=== PATIENT | female | born 2000 | race Caucasian/White ===

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

== ENCOUNTER → 2021-08-26 | Outpatient (CLI) | payer MEDICAID, SELFPAY ==
--- NOTE | 2021-08-26 12:31 | US_ITS ---
STUDY: FIRST TRIMESTER OBSTETRICAL ULTRASOUND REASON FOR EXAM: Female, 21 years old viability LMP: 06/17/2021. TECHNIQUE: Transvaginal TECHNICAL QUALITY: Adequate. PRIOR ULTRASOUND: None. FINDINGS: There is visualization of a single gestational sac in a normal intrauterine position. The mean sac diameter (MSD) measures 4.77 cm, indicating an estimated gestational age (EGA) of 10 weeks, 2 days. The gestational sac shape is within normal limits. There is a visualized yolk sac. The yolk sac measures 5.5 mm. The placenta is non-visualized. There is visualization of a live embryo. The crown-rump length (CRL) measures 2.98 cm, indicating an estimated gestational age (EGA) of 9 weeks, 3 days. There is demonstrated cardiac activity with a heart rate of 161 bpm. The estimated gestation age (EGA) by LMP is 10 weeks, 0 days. The estimated date of delivery (DARCI) by LMP is 03/24/2022. The estimated gestation age (EGA) by US is 9 weeks, 6 days. The estimated date of delivery (DARCI) by US is 03/25/2022. The uterus measures 11.8 cm x 9.6 cm x 8 cm. There is no demonstrated uterine fibroid. The cervix is closed. The right ovary measures 3.2 cm x 2.3 cm x 1.9 cm. There is no right ovarian cyst. There is no visualized right adnexal mass or complex lesion. The left ovary measures 2.7 cm x 1.8 cm x 1.5 cm. There is no left ovarian cyst. There is no visualized left adnexal mass or complex lesion. There is no fluid in the cul de sac. US/Transvaginal w/Preg US IMPRESSION: Single live uterine gestation with mean gestational age of 9 weeks and 6 days. Electronically Signed: Darell Ledezma MD at 13:28 EDT ,
== END | disposition home or self-care (01) ==
PROVIDERS: PCP Nurse Practitioner Family; Visit Provider Obstetrics & Gynecology
DX: O36.80X0 Pregnancy with inconclusive fetal viability, not applicable or unspecified (principal)
CPT/HCPCS: 76817

== ENCOUNTER → 2021-09-02 | Outpatient (CLI) | payer MEDICAID, SELFPAY ==
[2021-09-02 17:39] LABS: Amphetamine Urine VISTA NEGATIVE (<1000 ng/mL); Barbiturate Urine VISTA NEGATIVE (< 200 ng/mL); Benzodiazepine Urine VISTA NEGATIVE (< 200 ng/mL); Cocaine Urine VISTA NEGATIVE (< 300 ng/mL); Ecstacy Urine VISTA NEGATIVE (< 500 ng/mL); Methadone Urine VISTA NEGATIVE (< 300 ng/mL); PCP Urine VISTA NEGATIVE (< 25 ng/mL); THC Urine VISTA POSITIVE (< 50 ng/mL); Vista UDS pH Range 5
[2021-09-05 08:10] LABS: Chlamydia By Nucleic Acid AMP Negative (Negative)
[2021-09-05 19:05] LABS: Gonococcus By Nucleic Acid AMP Negative (Negative)
== END | disposition home or self-care (01) ==
LOC: LABSPEC 16:34
PROVIDERS: PCP Nurse Practitioner Family; Visit Provider Obstetrics & Gynecology
DX: Z34.90 Encounter for supervision of normal pregnancy, unspecified, unspecified trimester (principal)
CPT/HCPCS: 80307; 87086; 87088; 87491; 87591

== ENCOUNTER → 2021-09-08 | Outpatient (CLI) | payer MEDICAID, SELFPAY ==
[2021-09-08 11:44] LABS: Absolute Lymphocyte Count 1.75 X10^3/uL (0.83-4.51); Absolute Neutrophil Count 5.3 X10^3/uL (2.0-7.7); Basophil# 0.01 X10^3/uL; Basophil% 0.1 % (0-1); Eosinophil# 0.01 X10^3/uL; Eosinophils% 0.1 % (0-5); Hematocrit 35.2 % (37-47); Hemoglobin 11.9 g/dL (12.0-15.0); Lymphocyte # 1.75 X10^3/ul (0.83-4.51); Lymphocyte % 23.1 % (19-41); Mean Corp Hgb Conc 33.8 g/dL (32-36); Mean Corpuscular Volume 85.9 fL (81-99); Mean Platelet Vol. 9.6 fl (6.2-12.0); Monocyte# 0.45 X10^3/uL; NRBC Flagged by Analyzer 0 % (0-5); Neutrophil # 5.29 X10^3/uL (2.7-7.7); Platelet Count 262 K/mm3 (150-450); RBC Distribution Width SD 37.5 fl (35.1-43.9); White Blood Count 7.6 K/mm3 (4.4-11.0)
[2021-09-08 12:39] LABS: NATERA MAILED SPECIMEN
[2021-09-08 13:07] LABS: HIV - WCH Non-Reactive (Nonreactive); Hepatitis B Surface Antigen Non-Reactive (Nonreactive); Hepatitis C Antibody Non-Reactive (Nonreactive); Rubella IgG Reactive (Nonreactive); Syphilis Antibodies Non-reactive
== END | disposition home or self-care (01) ==
LOC: PAVLAB 11:16
PROVIDERS: PCP Nurse Practitioner Family; Referring Provider Obstetrics & Gynecology; Visit Provider Obstetrics & Gynecology
DX: Z34.90 Encounter for supervision of normal pregnancy, unspecified, unspecified trimester (principal)
CPT/HCPCS: 36415; 85025; 86703; 86762; 86780; 86803; 86850; 86900; 86901; 87340

== ENCOUNTER 2022-03-03 14:15 | Inpatient (IN) | payer MEDICAID, SELFPAY ==
[2022-03-03] VITALS (15 sets, daily range): BP systolic 89–125; BP diastolic 45–77; PULSE 50–84; RESP 14–20; TEMP 36–36.9; O2SAT 98–100; BMI 30.6
[2022-03-03] MEDS: Acetaminophen 500 MG Tablet 1000 MG PO ×2 (14:59→21:25)
[2022-03-03] MEDS: Lactated Ringers 1,000 ML 999 ML IV (15:45)
[2022-03-03 16:09] LABS: Absolute Lymphocyte Count 1.94 X10^3/uL (0.83-4.51); Basophil# 0.02 X10^3/uL; Basophil% 0.1 % (0-1); Eosinophil# 0.01 X10^3/uL; Eosinophils% 0.1 % (0-5); Hematocrit 40.7 % (37-47); Hemoglobin 13.4 g/dL (12.0-15.0); Lymphocyte # 1.94 X10^3/ul (0.83-4.51); Lymphocyte % 14.1 % (19-41); Mean Corp Hgb Conc 32.9 g/dL (32-36); Mean Corpuscular Hgb 27.9 pg (27.0-32.0); Mean Corpuscular Volume 84.8 fL (81-99); Mean Platelet Vol. 10.5 fl (6.2-12.0); Monocyte% 5.1 % (0-10); NRBC Flagged by Analyzer 0 % (0-5); Neutrophil # 10.99 X10^3/uL (2.7-7.7); Neutrophil % 80.2 % (47-70); Platelet Count 271 K/mm3 (150-450); RBC Distribution Width CV 12.1 % (11.6-14.6); RBC Distribution Width SD 36.8 fl (35.1-43.9); White Blood Count 13.7 K/mm3 (4.4-11.0)
[2022-03-03] MEDS: Sodium Citrate/Citric Acid 30 ML UDC PO (16:34)
[2022-03-03] MEDS: Lactated Ringers 1,000 ML 150 ML IV (16:35)
--- NOTE | 2022-03-03 16:47 | HP.PCM.OB_ITS ---
HPI - General General Date of Admission: 03/03/22 HPI Narrative LIZANDRO FLORES, is a 21 y/o @ 37 weeks 0 days who was admitted to L&D today after being seen in office and found to be 4 cm dilated, low fundal height and mariella of 2. Her placenta appeared calcified and she also has complaints of itching of hands and feet. She has a h/o prior section and desires repeat. She was away from our office since the end of October and states that she was seen by an OB in [place]. She denies lof, vaginal bleeding, or dec fm. Maternal Data Information DARCI Calculator Estimated Delivery Date Method Current WG Current Estimate 03/24/22 LMP (Certain) 37w 0d Other Estimates 03/20/22 Ultrasound #1 37w 4d PFSH PFSH Medical History Asthma Home Medications albuterol sulfate 90 mcg/actuation aerosol inhaler 2 puff inhalation Q6H PRN shortness of breath or wheezing #8.5 grams 09/02/21 [Rx Last Taken Unknown] prenat.vits,nancy,cof-naes-fihfe 1 tab PO DAILY 03/03/22 [History Last Taken 03/02/22 12:00] Allergy/AdvReac Type Severity Reaction Status Date / Time No Known Allergies Allergy Verified 03/03/22 13:15 Family History Mother Diabetes Surgical History History of wisdom tooth extraction, class IV edentulism Social History household members: family housing: house current occupational status: unemployed pets and animals: Yes Smoking Status: Current some day smoker second hand exposure: No alcohol intake: never substance use type: does not use seatbelt use: always do you feel safe at home: Yes additional social history: BF- Tristian Ballard ([employer] K) History 2 Elective abortions Hx Para 1 Spontaneous abortions Hx # Term Pregnancies Ectopic pregnancies Hx # Pregnancies Multiple births # of living children 1 Past Pregnancies Del. Date Name GA/Weeks Outcome Route Bth Weight Gen Labor Lgth Anesthesia Del Locatn Provider FOB 12/07/20 Blade 40 live - full term Male e pidural [facility] Z[facility] Delivery Date: 12/07/20 Last Updated by: Bronwyn Garcia elective induction for borderline MARIELLA. underwent c section for non reassuring status. Visit Details Expected Delivery Route/Plan patient counseled regarding risks/benefits of trial of labor versus repeat . ACOG/uptodate education given to patient. 29.8% % likelihood of success per calculator Discussed that she is less than 1 year from last , unless spontaneous labor happens on it's own, that repeat section is recommended. Plans Covid status: [] Flu vaccine: [] Tdap vaccine: [] Rhogam: [] LARC form signed: [] Problem list reviewed and updated with the most current plan of care details and appropriate orders placed. Relevant counseling for the gestational age provided. Continue routine care and follow up unless otherwise noted in visit notes/problem list details OB Flowsheet Initial Weight: Not Recorded Date -?-?-?-?-?-?-?-?-?-?-?-?- EGA Weight BP Urine Prot -?-?-?-?-?-?-?-?-?-?-?-?- Glucose FHR FuHt Pres Dilation -?-?-?-?-?-?-?-?-?-?-?-?- Effaced St Visit Note 09/02/21 -?-?-?-?-?-?-?-?-?-?-?-?- 11w 0d 155 lb 8 oz 110/72 -?-?-?-?-?-?-?-?-?-?-?-?- 157 -?-?-?-?-?-?-?-?-?-?-?-?- JV- CRL consiste nt with LMP. pt was an emergency section 9 months ag o. She wants to , chance of success only 29%. risks of rupture discussed. see above recommendations. 09/29/21 -?-?-?-?-?-?-?-?-?-?-?-?- 14w 6d 159 lb 118/60 Negative -?-?-?-?-?-?-?-?-?-?-?-?- Negative 154 -?-?-?-?-?-?-?-?-?-?-?-?- MH-No bleeding o r cramping. Denies concerns. Nausea resolved. 11/06/21 -?-?-?-?-?-?-?-?-?-?-?-?- 20w 2d 161 lb 2 oz 118/80 Nega tive -?-?-?-?-?-?-?-?-?-?-?-?- Negative 125 -?-?-?-?-?-?-?-?-?-?-?-?- JV- no lof, vagi nal bleeding, or cramping. had formal scan yesterday and results are pending 03/03/22 -?-?-?-?-?-?-?-?-?-?-?-?- 37w 0d 184 lb 4 oz 121/78 Nega tive -?-?-?-?-?-?-?-?-?-?-?-?- Negative 135 33 Cephalic 4 -?-?-?-?-?-?-?-?-?-?-?-?- 70 -1 JV- pt is having pain over her incision and states that her insides hurt like the day she had her last baby she has been seen in [place] with an OB there while she was visiting family since November. She complains of all over body itching including palms of hands. On exam MARIELLA is 2 and placenta appears to have grade 3 changes. her cx is 4 cm dilated. sending to L&D for delivery tonight via repeat section. ROS Constitutional Constitutional: Denies change in weight, fatigue, fever(s), headache(s), poor appetite or weakness Eyes Eyes: Denies blurry vision, change in vision, seeing flashes or spots in vision ENT HEENT: Denies dizziness, headache(s), loss taste/smell or sore throat Cardiovascular Cardiovascular: Denies chest pain, dizziness, dyspnea, irregular heart rhythm, leg edema, palpitations, rapid heart rate or vomiting Respiratory/Chest Respiratory/Chest: Denies chest tightness, cough, dyspnea or breast pain Gastrointestinal Gastrointestinal: Denies abdominal pain, anorexia, constipation, cramping, diarrhea, hemorrhoids, vomiting or weight changes Genitourinary Genitourinary: Denies dysuria, flank pain, genital lesions, genital pain, urinary frequency or urinary urgency Musculoskeletal Musculoskeletal: Denies back pain, difficulty walking, joint pain, limited range of motion, muscle cramps or numbness Integumentary Integumentary: Denies lesions or unusual bruising Neurologic Neurologic: Denies abnormal movements, abnormal speech, dizziness, numbness, seizure-like activity or syncope Psychiatric Psychiatric: Denies anxiety, behavioral changes, change in appetite, change in libido, cognitive impairment, confusion, depression, difficulty concentrating, hallucinations or suicidal thoughts Endocrine Endocrinology: Denies excessive sweating, polydipsia or polyuria Hematologic/Lymphatic Hematologic/Lymphatic: Denies easy bleeding, easy bruising or lymphadenopathy Allergic/Immunologic Allergic/Immunologic: Denies itchy eyes, lip swelling, seasonal rhinorrhea, rhinitis, throat swelling, tongue swelling, eczemia, wheezing or asthma Vital Signs Vital Signs Vital Signs: 03/03/22 14:35 03/03/22 14:35 03/03/22 14:35 Temperature Temperature Source Pulse Rate 84 Respiratory Rate Blood Pressure 113/63 Blood Pressure Mean BP Systolic 113 BP Diastolic 63 Blood Pressure Source Blood Pressure Position Blood Pressure Location Pulse Ox 98 Oxygen Delivery Method 03/03/22 16:10 03/03/22 16:10 03/03/22 15:43 Temperature 97.5 F L Temperature Source Temporal Pulse Rate 71 69 Respiratory Rate 18 Blood Pressure 125/77 H 125/77 H Blood Pressure Mean 93 BP Systolic 125 BP Diastolic 77 Blood Pressure Source Monitor Blood Pressure Position Semi-Fowlers Blood Pressure Location Right Arm Pulse Ox 100 Oxygen Delivery Method Room Air Weight Weight: 183 lb 13.848 oz Body Mass Index (BMI) 30.6 Physical Exam Const alert, oriented x3, no apparent distress and healthy appearing General Appearance: cooperative; Negative for anxious HEENT normocephalic Face and Sinus: normal facial exam Eyes EOMs intact bilaterally and no scleral icterus General Eye: normal appearance of both eyes Neck full ROM and supple Lymph Lymphatic: no lymphadenopathy noted Chest Chest: abnormal inspection of the chest Resp normal respiratory effort Effort and Inspection: able to speak in complete sentences Cardio regular rate GI soft to palpation and non-tender Inspection: gravid Palpation: soft; Negative for tender external exam normal Amniotic Fluid: ROM+plus Back/Spine no CVA tenderness Extremity normal to inspection, full ROM and no clubbing, cyanosis or edema General Extremity: Negative for calf tenderness or edema Skin Lesions: no lesions Rashes: no rashes Psych mental status grossly normal Labs Labs Labs: Blood Type AB POSITIVE Antibody Screen NEGATIVE Hct 40.7 % (37-47) Hgb 13.4 g/dL (12.0-15.0) Obstetrics US Syphilis Total Ab Non-reactive Rubella IgG Antibody Reactive (Nonreactive) Hep Bs Antigen Non-Reactive (Nonreactive) Chlamydia DNA (ZAFAR) Negative (Negative) Neisseria gonorrhoeae DNA (ZAFAR) Negative (Negative) HIV 1&2 Antibody Non-Reactive (Nonreactive) Glucose 1 Hr 50 gm 96 mg/dL (70-140) Miscellaneous Test Assessment & Plan (1) Oligohydramnios: (2) Marijuana abuse: COMMENT: +tox at NOB, random tox screens. (3) History of : COMMENT: chance of successful is 29%. recommend rpt section if no active labor (4) : QUALIFIERS: Weeks of gestation: 37 weeks Qualified Code(s): Z3A.37 - 37 weeks gestation of COMMENT: NIPT low risk, previous carrier testing negative. Anatomy US normal (5) Supervision of normal : COMMENT: [id number] Boy PC Blade PLAN: Plan 37 weeks - prior section suspect iugr and cholestasis of oligo confirmed today. will order torch titers and admit to L&D for delivery shashi
[2022-03-03 16:48] LABS: Amphetamine Urine VISTA NEGATIVE (<1000 ng/mL); Barbiturate Urine VISTA NEGATIVE (< 200 ng/mL); Benzodiazepine Urine VISTA NEGATIVE (< 200 ng/mL); Cocaine Urine VISTA NEGATIVE (< 300 ng/mL); Ecstacy Urine VISTA NEGATIVE (< 500 ng/mL); Methadone Urine VISTA NEGATIVE (< 300 ng/mL); PCP Urine VISTA NEGATIVE (< 25 ng/mL); THC Urine VISTA POSITIVE (< 50 ng/mL); Vista UDS pH Range 4
[2022-03-03] MEDS: Cefazolin 2 GM in 0.9% Normal Saline 100 ML IV (17:05)
[2022-03-03] MEDS: Oxytocin 15 Units/NS 250ml 15 UNITS/250 ML IV.SOLN 83 UNITS IV (18:10)
[2022-03-03] MEDS: Ketorolac 30 MG/ML Syringe IV (18:55)
--- NOTE | 2022-03-03 19:40 | OP.PCM_ITS ---
Assessment & Plan (1) Oligohydramnios: (2) Marijuana abuse: COMMENT: +tox at NOB, random tox screens. (3) History of : COMMENT: chance of successful is 29%. recommend rpt section if no active labor (4) : QUALIFIERS: Weeks of gestation: 37 weeks Qualified Code(s): Z3A.37 - 37 weeks gestation of COMMENT: NIPT low risk, previous carrier testing negative. Anatomy US normal (5) Supervision of normal : COMMENT: [id number] Boy PC Blade Maternal Data Information DARCI Calculator Estimated Delivery Date Method Current WG Current Estimate 03/24/22 LMP (Certain) 37w 0d Other Estimates 03/20/22 Ultrasound #1 37w 4d Final DARCI: 03/24/22 Final DARCI Source: LMP Gestational age: 37 Details Operative Information Date of Procedure: 03/03/22 Pre-Operative Diagnosis: @ 37 weeks, prior section, oligohydramnios, 4 cm dilated, suspect cholestasis of Post-Operative Diagnosis: @ 37 weeks, prior section, oligohydramnios, 4 cm dilated, suspect cholestasis of Classification: Scheduled Procedure Type: low transverse senior program analyst #1: Myriam Owen Type of Anesthesia: Spinal Antibiotic Given: Ancef 2 grams IV x1 Drain: Candelario to straight drain Estimated Blood Loss: 400cc Findings Description of Procedure: The patient is a 21 y/o @ 37 weeks presented for repeat . Spinal anesthesia was placed without difficulty. Candelario catheter was placed. The patient was placed in the dorsal supine position with leftward tilt. Patient was prepped and draped in the normal sterile fashion. Pfannenstiel skin incision was made with the scalpel and carried through to the underlying layer of fascia with the scalpel. Fascia was nicked in the midline and the incision extended laterally. The rectus bellies were dissected off superiorly and inferiorly with out complication both sharply and bluntly. The peritoneum was entered digitally. The incision was stretched and a low transverse uterine incision was made with the scalpel. The 's head was delivered atraumatically followed by the anterior and posterior shoulders without complication the rest of the delivered. The cord was clamped and cut and the was handed off to awaiting nurse. The placenta was delivered spontaneously immediately following and was noted to be intact and have a three- vessel cord. The uterus was exteriorized cleared of all clots and debris, and the incision was closed in a double layer closure using #1 vicryl and #1 Monocryl. The ovaries and fallopian tubes were noted to be within normal limits. The uterus was returned to the maternal abdomen and gutters were cleared of all clots and debris. The peritoneum was closed with 3-0 Monocryl in a running fashion. Fascia was closed with 0 PDS in a running fashion. Subcu taneous tissue was copiously irrigated and the skin was closed with 3-0 Monocryl in a subcuticular fashion. Mepilex dressing was applied without complication. Patient was taken to recovery in stable condition. It was discussed with the patient that based on the clinical information obtained during this encounter, combined with her history, at this time I would recommend for future deliveries if further pregnancies are desired. Presentation: Positive for Vertex Amniotic Fluid Description: Clear Placenta Disposition: [facility] Cord Vessel Description: 3 Vessels Cord Entanglement: None Infant A Gender: Male (1 minute): 8 (5 minute): 9 Delayed Cord Clamping: Yes Complications Risks of Surgery Discussed w/Patient: Bleeding, Anesthesia Risks, Infection, Need for Future C-Sections and Injury to surrounding structure(s) including bowel and bladder Multi Select Codes Urinary/Genital Urinary/Genital CPT Codes: 44403 delivery+ Care([facility])
--- NOTE | 2022-03-03 19:47 | PCM.DC ---
Discharge Instructions Diet Discharge Diet: No restrictions Activity Discharge Activity: May Not Drive (for 2 weeks or while taking narcotic pain medications.), May Shower and May Take a Tub Bath (in 7 days.) May resume sexual activity in: 4-6 weeks Weight Bearing Status: Full weight bearing Lifting Restrictions: 20 pounds Dressing / Incision Call your doctor if your incision/area has: Continuous Slow Oozing, Sudden Increased Bleeding, Increased Pain/ Swelling, Increased Redness and Foul Smelling Discharge Call your doctor if you observe: Fever of 101 or Higher and Using more than 1 pad per hour Suture Line Care: Avoid Pulling/Pushing and Avoid Pinching/Bending Cleanse incision/area with: Soap & Water and Keep Dressing Clean & Dry Follow Up Care Please Follow Up With: Vika Acuna DO When: Call [phone] to make an appointment for an incision check in 1-2 weeks. Test Results: Test results from this visit will be discussed in further detail at your follow-up appointment, if applicable. Discharge Plan Admission Admit Date/Time: 03/03/22 14:15 Primary Reason for Your Visit: repeat section Attending Provider: Vika Acuna Primary Care Provider: Bettie Godinez NP Discharge Orders/Prescriptions Prescriptions: New oxycodone-acetaminophen [Percocet] 5-325 mg tablet 1 tab PO Q4H PRN (Reason: pain) 7 Days Qty: 30 0RF naproxen 500 mg tablet,delayed release (DR/EC) 500 mg PO BID PRN (Reason: pain) Qty: 40 0RF Continued albuterol sulfate 90 mcg/actuation HFA aerosol inhaler 2 puff inhalation Q6H PRN (Reason: shortness of breath or wheezing) Qty: 8.5 12RF prenat.vits,nancy,jwj-axvc-pibjw Tablet 1 tab PO DAILY Referrals / Follow Up: Bettie Godinez NP, [employer] [Primary Care Provider] - Disposition Disposition (needs filled in before D/C Order can be placed): Home, Self Care
[2022-03-03] MEDS: Lactated Ringers 1,000 ML 100 ML IV (21:24)
[2022-03-04] VITALS (16 sets, daily range): BP systolic 84–117; BP diastolic 39–72; PULSE 54–367; RESP 15–18; TEMP 36.3–37.1; O2SAT 96–99
[2022-03-04] MEDS: Ketorolac 30 MG/ML Syringe IV ×3 (00:25→12:15)
[2022-03-04] MEDS: Acetaminophen 500 MG Tablet 1000 MG PO ×4 (03:17→21:30)
[2022-03-04 06:11] LABS: Hematocrit 32.5 % (37-47); Hemoglobin 10.5 g/dL (12.0-15.0); Mean Corp Hgb Conc 32.3 g/dL (32-36); Mean Corpuscular Hgb 27.7 pg (27.0-32.0); Mean Corpuscular Volume 85.8 fL (81-99); Mean Platelet Vol. 10.8 fl (6.2-12.0); Platelet Count 188 K/mm3 (150-450); RBC Distribution Width CV 12.1 % (11.6-14.6); Red Blood Count 3.79 M/mm3 (4.2-5.4); White Blood Count 10.5 K/mm3 (4.4-11.0)
--- NOTE | 2022-03-04 08:13 | PCM.PN.OB ---
Subjective Subjective Patient doing well without complaints. Tolerating PO. Ambulating and voiding without difficulty. Feeding well. Denies chest pain, shortness of breath, calf pain/swelling, fevers, chills, lightheadedness. Objective Data Objective Data Vital Signs: Vital Signs Temp Pulse Resp BP Pulse Ox O2 Del Method 97.4 F L 54 L 16 93/39 L 98 Room Air 03/04/22 03:31 03/04/22 07:30 03/04/22 07:30 03/04/22 03:31 03/04/22 07:30 03/04/22 07:30 Oxygen Delivery Method Room Air Weight: 183 lb 13.848 oz Body Mass Index (BMI) 30.6 Intake & Output: Intake and Output for Last 24 Hours 03/02/22 03/03/22 03/04/22 23:59 23:59 23:59 Intake Total 2009 946.67 / 946.67 Output Total 150 / 150 550 / 550 Balance 1860 / 1860 396.67 / 396.67 Lab / Micro Data Attestation: I reviewed the patient's lab results. Result Diagrams: 03/04/22 05:20 Labs: Laboratory Results - last 24 hr 03/03/22 15:50: WBC 13.7 H, RBC 4.80, Hgb 13.4, Hct 40.7, MCV 84.8, MCH 27.9, MCHC 32.9, RDW Std Deviation 36.8, RDW Coeff of Vazquez 12.1, Plt Count 271, MPV 10.5, Immature Gran % (Auto) 0.400, Neut % (Auto) 80.2 H, Lymph % (Auto) 14.1 L, [place] % (Auto) 5.1, Eos % (Auto) 0.1, Baso % (Auto) 0.1, Absolute Neuts (auto) 11.0 H, Absolute Lymphs (auto) 1.94, Nucleated RBC % 0 03/03/22 15:50: Blood Type AB POSITIVE, Antibody Screen NEGATIVE 03/03/22 15:50: Urine Opiates Screen NEGATIVE, Urine Methadone Screen NEGATIVE, Ur Barbiturates Screen NEGATIVE, Ur Phencyclidine Scrn NEGATIVE, Ur Amphetamines Screen NEGATIVE, MDMA (Ecstasy) Screen NEGATIVE, U Benzodiazepines Scrn NEGATIVE, Urine Cocaine Screen NEGATIVE, U Cannabinoids Screen POSITIVE H, Ur Drug Screen Comment 03/04/22 05:20: WBC 10.5, RBC 3.79 L, Hgb 10.5 L, Hct 32.5 L, MCV 85.8, MCH 27.7, MCHC 32.3, RDW Std Deviation 38.0, RDW Coeff of Vazquez 12.1, Plt Count 188, MPV 10.8 ROS ROS Narrative see HPI Physical Exam Narrative pt in NAD, easy WOB, cardiac exam normal. abdomen soft, nt/nd. fundus firm at u. lochia rubra mild, small clots. LE without edema. +pp. Const alert, oriented x3, no apparent distress and well nourished Assessment & Plan (1) Status post section: COMMENT: bb boy - JV (2) Marijuana abuse: COMMENT: +tox at NOB, random tox screens. (3) History of : COMMENT: chance of successful is 29%. recommend rpt section if no active labor PLAN: Plan s/p LTCS PPD #1 1. routine post care 2. breast feeding- support given 3. rh positive 4. rubella immune
[2022-03-04] MEDS: Senna/Docusate Sodium 1 Tablet PO (11:09)
[2022-03-04] MEDS: Prenatal Vits Tablet 1 TABLET PO (12:15)
[2022-03-04] MEDS: Ibuprofen 600 MG Tablet PO (18:56)
--- NOTE | 2022-03-04 21:37 | NURSING ---
T 2120 when this RN entered room, RACHELE stated her chest hurt all over. This RN listened to MOB and lungs were bilaterally clear and heart was regular. Pulse ox was 97%. This RN explained to pt that she should get up and ambulate out of bed and sit up in chair as it could be gas pains and moving with help. Will re-evaluate pt after she does so and if no changes will call physician. Charge nurse Rossy notified
--- NOTE | 2022-03-04 22:26 | NURSING ---
pt stated at 2224 that chest pain has subsided and does not hurt anymore, there is some pain in her right shoulder but not severe. Educated pt on gas pains and will continue to follow up with pain.
[2022-03-05] MEDS: Ibuprofen 600 MG Tablet PO ×3 (01:18→14:29)
[2022-03-05 01:20] VITALS: BP 106/48; PULSE 64; RESP 16; TEMP 36.8; O2SAT 97
[2022-03-05] MEDS: Acetaminophen 500 MG Tablet 1000 MG PO ×2 (03:40→09:41)
[2022-03-05] MEDS: 0.9% Saline Lock 10 ML Syringe IV (03:41)
--- NOTE | 2022-03-05 07:50 | PCM.PN.OB ---
Subjective Subjective Patient doing well without complaints. Tolerating PO. Ambulating and voiding without difficulty. Feeding well. Denies chest pain, shortness of breath, calf pain/swelling, fevers, chills, lightheadedness. Objective Data Objective Data Vital Signs: Vital Signs Temp Pulse Resp BP Pulse Ox O2 Del Method 98.3 F 64 16 106/48 L 97 Room Air 03/05/22 01:20 03/05/22 01:20 03/05/22 01:20 03/05/22 01:20 03/05/22 01:20 03/05/22 01:20 Oxygen Delivery Method Room Air Weight: 183 lb 13.848 oz Body Mass Index (BMI) 30.6 Intake & Output: Intake and Output for Last 24 Hours 03/03/22 03/04/22 03/05/22 23:59 23:59 23:59 Intake Total 2009 946.67 / 946.67 Output Total 150 / 150 1200 / 1200 Balance 1860 / 1860 -253.33 / -253.33 Lab / Micro Data Result Diagrams: 03/04/22 05:20 Physical Exam Const alert and oriented x3 HEENT normocephalic Eyes PERRL Neck full ROM Resp normal respiratory effort GI soft to palpation GI Narrative: FF below U. Dressing dry and intact Palpation: tender other (appropriately) Assessment & Plan (1) Status post section: COMMENT: coleen Yung PLAN: Plan s/p LTCS PPD # 2 1. routine post care 2. breast feeding- support given 3. rh positive 4. rubella immune 5. plans home today
[2022-03-05] MEDS: oxyCODONE 5 MG Tablet PO (09:40)
[2022-03-05] MEDS: Senna/Docusate Sodium 1 Tablet PO (09:41)
[2022-03-05 09:59] VITALS: BP 108/52; PULSE 64; RESP 16; TEMP 37.2; O2SAT 98
[2022-03-05] MEDS: Prenatal Vits Tablet 1 TABLET PO (14:29)
[2022-03-05] MEDS: MedroxyPROGESTERone 150 MG/ML Syringe IM (14:29)
[2022-03-05 15:00] VITALS: BP 119/63; PULSE 67; RESP 16; TEMP 36.7
[2022-03-05 16:24] LABS: Toxoplasma Gondii IgM < 3.0 AU/mL (0.0-7.9)
[2022-03-05 16:33] LABS: CMV Acute Antibody IgM < 30.0 AU/mL (0.0-29.9); CMV Antibody IgG < 0.60 U/mL (0.00-0.59); HSV 1 IgG < 0.91 index (0.00-0.90); HSV 2 IgG < 0.91 index (0.00-0.90); Toxoplasma Gondii IgG < 3.0 IU/mL (0.0-7.1)
== END 2022-03-05 16:00 | disposition home or self-care (01) | DRG 540 ==
PROVIDERS: Admitting Provider Obstetrics & Gynecology; PCP Nurse Practitioner Family; Visit Provider Obstetrics & Gynecology
DX: O41.03X0 Oligohydramnios, third trimester, not applicable or unspecified (principal); O99.324 Drug use complicating childbirth; F12.10 Cannabis abuse, uncomplicated; F17.200 Nicotine dependence, unspecified, uncomplicated; J45.909 Unspecified asthma, uncomplicated; O99.52 Diseases of the respiratory system complicating childbirth; O34.219 Maternal care for unspecified type scar from previous cesarean delivery; O99.334 Smoking (tobacco) complicating childbirth; Z3A.37 37 weeks gestation of pregnancy; Z37.0 Single live birth
CPT/HCPCS: 59025; 59050; 80307; 85025; 85027; 86644; 86645; 86695; 86696; 86777; 86778; 86850; 86900; 86901; 99218; J7120; A4216; G0378; J2405

== ENCOUNTER 2022-03-07 15:51 | Emergency (ER) | payer MEDICAID, SELFPAY ==
[2022-03-07 15:55] VITALS: BP 95/78; PULSE 66; RESP 18; TEMP 36.5; O2SAT 98; BMI 28.9
--- NOTE | 2022-03-07 16:28 | CT_ITS ---
INDICATION: headache, recent delivery EXAMINATION: CT BRAIN - CT Head or Brain W/O Contrast Injection TECHNIQUE: Multiple axial images were obtained of the head without intravenous contrast. A radiation dose optimization technique was used for this scan. IV Contrast dosage and agent: None. RADIATION DOSAGE (If Supplied By Facility): CTDIvol = ( 44.99 ) mGy, DLP = ( 796.11 ) mGycm COMPARISON: No relevant prior examinations for comparison FINDINGS: HEMISPHERES: 1. The cerebral parenchyma, ventricular system, subarachnoid spaces have normal configuration and density. There is a normal gyral pattern. There is normal vargas/white differentiation. No midline shift.. 2. The hemispheric white matter has normal appearance. 3. No intraparenchymal mass, hemorrhage, or acute territorial infarct. CEREBELLUM - BRAINSTEM: The cerebellum, brainstem, basilar and suprasellar cisterns have normal appearance. No Chiari malformation. PITUITARY: Infundibulum and pituitary have normal configuration. Midline structures appear normal. CSF SPACES: Appropriate for age. No hydrocephalus. Basal cisterns are patent. VESSELS: 1. No significant vascular calcifications in the cavernous carotid vessels. 2. No hyperdense vascular signs noted.. ORBITS AND PARANASAL SINUSES: 1. Normal appearance of the bony orbits. Normal appearance of the globes and retrobulbar soft tissues.. 2. Paranasal sinuses are clear. BONY ELEMENTS: Bony elements of the cranial vault, facial skeleton and skull base have normal appearance. SCALP AND SOFT TISSUES: Normal appearance of the soft tissues of the scalp and the visualized face OTHER: None ASPECTS Score for Acute Strokes: 10 CT/Brain/Head without Contrast IMPRESSION: 1. Normal CT examination of the brain 2. No intracranial mass, hemorrhage or acute territorial infarct. 3. No radiographically significant sinus disease.. Electronically Signed: Ankit Gurrola MD at 17:48 EST ,
--- NOTE | 2022-03-07 16:36 | EX.ED.VIS.HA ---
HPI History of Present Illness Chief Complaint: Headache Informant: patient Onset/Context/Timing Onset: Days (3-4) Context: Gradual Timing: Continuous Location: Bifrontal and behind right eye Current Severity: Moderate Maximum Severity: Moderate Worsened by: Light at times Relieved by: Nothing she has tried including naproxen Associated Symptoms/Injury Associated Symptoms: Positive for Nausea, Vomiting (x1), Blurred Vision (Intermittently) and Photophobia; Negative for Fever, Sore Throat, Sinus Pressure, Numbness, Tingling or Visual Loss Injury - FRANK: Negative for Direct Trauma Narrative Narrative: 21-year-old healthy female had a delivery without any known third trimester complications 4 days ago. On her way home from the hospital started having headache, was gradual and progressively worsening. She uses the word migraine but states she has never had a migraine before. It is bifrontal, right retro-orbital, there is no thunderclap in onset was gradual, associated with some blurred vision at times, seeing spots at times that are not focal in her field of vision, nausea, vomited once. No focal neurologic symptoms. No fevers or chills. No neck stiffness. No confusion. She has not had any blood pressure issues during her that she knows of. [facility] Medical History Asthma Home Medications albuterol sulfate 90 mcg/actuation aerosol inhaler 2 puff inhalation Q6H PRN shortness of breath or wheezing #8.5 grams 09/02/21 [Rx Last Taken Unknown] naproxen 500 mg tablet,delayed release 500 mg PO BID PRN pain #40 tabs 03/03/22 [Rx Last Taken Unknown] oxycodone-acetaminophen 5 mg-325 mg tablet (Percocet) 1 tab PO Q4H PRN pain 7 days #30 tabs 03/03/22 [Rx Last Taken Unknown] prenat.vits,nancy,[id number] 1 tab PO DAILY 03/03/22 [History Last Taken 03/02/22 12:00] oxycodone-acetaminophen 5 mg-325 mg tablet (Percocet) 1 tab PO Q4H PRN pain 7 days #30 tabs 03/05/22 [Rx Last Taken Unknown] Allergy/AdvReac Type Severity Reaction Status Date / Time No Known Allergies Allergy Verified 03/07/22 15:57 Family History Mother Diabetes Surgical History (Updated 03/07/22 @ 16:23 by Nuno Pedraza) History of wisdom tooth extraction, class IV edentulism Previous section Social History household members: family housing: house current occupational status: unemployed pets and animals: Yes Smoking Status: Current some day smoker tobacco type: cigarettes second hand exposure: No alcohol intake: never substance use type: does not use seatbelt use: always do you feel safe at home: Yes additional social history: [place]- [employer] ([place]) ROS ROS ED Constitutional Constitutional ED: Denies chills or fever(s) Eyes Eyes: Reports blurry vision; Denies diplopia ENT ENT ED: Denies ear pain or sore throat Cardiovascular Cardiovascular: Denies chest pain or palpitations Respiratory/Chest Respiratory/Chest: Denies cough or dyspnea Gastrointestinal Gastrointestinal: Reports nausea and vomiting; Denies abdominal pain or diarrhea Genitourinary Genitourinary ED: Denies dysuria or urinary frequency Musculoskeletal Musculoskeletal: Denies back pain or myalgias Integumentary Denies abscess or rash Neurologic Neurologic: Reports headache(s); Denies paresthesias or weakness EXAM Physical Exam Const Vital Signs: 03/07/22 15:55 03/07/22 18:00 Temperature 97.7 F L Temperature Source Temporal Pulse Rate 66 78 Respiratory Rate 18 16 Blood Pressure 95/78 115/78 Blood Pressure Mean 83 90 Pulse Ox 98 99 Oxygen Delivery Method Room Air Room Air Positive well nourished and well developed Constitutional Narrative: Well-appearing, conversive in full sentences, no distress General Appearance ED: well developed and NAD HEENT Reports normocephalic, TM's clear and moist mucous membranes atraumatic Face and Sinus: Negative for sinus tenderness Tympanic Membrane ED: Yes TM's clear Mouth ED: Yes oral and palatal mucosa normal Mouth: oral and palatal mucosa normal Throat: posterior oropharynx normal Eyes PERRL, EOMs intact bilaterally and conjunctivae normal Eyes Narrative: photophobia Neck no lymphadenopathy, supple and no meningeal signs General: Negative for tenderness Resp normal respiratory effort and clear to auscultation bilaterally Cardio regular rate and regular rhythm Rate: Negative for tachycardic GI non-tender and non-distended Palpation: soft Back/Spine no CVA tenderness Back/Spine Narrative: FROM Extremity normal to inspection and full ROM Neuro oriented x3, CN's II-XII intact bilaterally and no sensory deficits noted Sensorium / Orientation: awake and alert Speech: speech normal Gait (Neuro): normal gait Motor Exam: strength 5/5 throughout Psych mental status grossly normal Skin Lesions: no lesions Rashes: no rashes MDM MDM MDM Narrative Medical decision making narrative: CT of the head was obtained, it is negative/normal. Her blood pressure has been well I do not think she needs to be worked up for preeclampsia or help syndrome. She was given IV fluids and Reglan, it helped a little but she still having significant headache. However, the patient pulled out her IV and wants to leave. I am offering more medications, testing which she is declining, but I will have discharge papers ready for her if she wants to leave regardless of which of these she accepts. Radiography Diagnostic Testing: Clinical Impression(s) from Imaging Studies Brain CT 03/07/22 16:28 IMPRESSION: 1. Normal CT examination of the brain 2. No intracranial mass, hemorrhage or acute territorial infarct. 3. No radiographically significant sinus disease.. Electronically Signed: Ankit Gurrola MD at 17:48 EST , Discharge Plan Triage Chief Complaint: Headache ED Provider: Del Alvarado Dx/Rx/DC Orders Clinical Impression: Cephalgia Instructions: Understanding Headache Pain Prescriptions: No Action albuterol sulfate 90 mcg/actuation HFA aerosol inhaler 2 puff inhalation Q6H PRN (Reason: shortness of breath or wheezing) Qty: 8.5 12RF prenat.vits,nancy,[id number] Tablet 1 tab PO DAILY oxycodone-acetaminophen [Percocet] 5-325 mg tablet 1 tab PO Q4H PRN (Reason: pain) 7 Days Qty: 30 0RF naproxen 500 mg tablet,delayed release (DR/EC) 500 mg PO BID PRN (Reason: pain) Qty: 40 0RF oxycodone-acetaminophen [Percocet] 5-325 mg tablet 1 tab PO Q4H PRN (Reason: pain) 7 Days Qty: 30 0RF Primary Care Provider: Bettie Godinez NP Referrals: Bettie Godinez NP, [facility] [Primary Care Provider] - 3-5 Days if not improving Activity Restrictions/Additional Instructions: Pump breastmilk and discarded tonight due to the medication, and supplement feed the baby with formula. Disposition Disposition: Home, Self Care
[2022-03-07] MEDS: 0.9% Normal Saline 1,000 ML 999 ML IV (16:43)
[2022-03-07] MEDS: Metoclopramide 10 MG/2 ML Vial 5 MG IV (16:43)
[2022-03-07 18:00] VITALS: BP 115/78; PULSE 78; RESP 16; O2SAT 99
[2022-03-07 19:57] VITALS: BP 118/78; PULSE 78; RESP 16; TEMP 36.6; O2SAT 99
[2022-03-07] MEDS: Ketorolac 60 MG/2 ML Vial IM (20:05)
[2022-03-07] MEDS: oxyCODONE 5 MG Tablet PO (20:05)
== END 2022-03-07 20:05 | disposition home or self-care (01) ==
PROVIDERS: Emergency Provider Emergency Medicine; PCP Nurse Practitioner Family; Visit Provider Emergency Medicine
DX: O99.893 Other specified diseases and conditions complicating puerperium (principal); R51.9 Headache, unspecified; R11.2 Nausea with vomiting, unspecified; F17.210 Nicotine dependence, cigarettes, uncomplicated
CPT/HCPCS: 70450; 96361; 96372; 96374; 99284; J7030; A4216